=== PATIENT | male | born 1960 | race Caucasian/White ===

== ENCOUNTER 2020-06-01 08:22 | Outpatient (REF) | payer BC, SELFPAY ==
--- NOTE | 2020-06-01 08:25 | CT_ITS ---
EXAMINATION: CT CHEST SCREENING CLINICAL INFORMATION: CT lung screening. Ex-smoker. COMPARISON: 02/05/2019 TECHNIQUE: Multidetector volumetric CT imaging of the chest is performed without contrast using low dose technique. Additional 2D coronal and sagittal reformatted images and axial 3D maximum intensity projection (MIP) images are generated on the CT workstation. This CT examination was performed using dose optimization techniques as appropriate, variously including the following: *Automated exposure control *Adjustment of mA and/or kV according to patient size (this includes techniques or standardized protocols for targeted exams where dose is matched to indication/reason for exam; i.e. extremities or head) *Use of iterative reconstruction technique DLP: 52 mGy-cm FINDINGS: LUNGS: Central airways are patent. No bronchial wall thickening. No bronchiectasis. No confluent parenchymal disease. No significant changes of emphysema appreciated. There are a few sub-4 mm densities present bilaterally. These are stable compared to previous study. Within the right upper lobe adjacent to the minor fissure, there is a 4 mm density, likely representing an intrafissural lymph node. This is on image 290 of 554. This is a stable finding. There is a 5 mm circumscribed density seen within the lower portion peripherally of the right major fissure, likely representing an intrafissural lymph node. This is on image 448 of 554. This is slightly more prominent than on prior study but still consistent with a benign intrafissural lymph node. Within the left major fissure, there is a 6 x 3 mm noncalcified density, likely representing intrafissural lymph node. This is on image 299 of 554. This is a stable finding. MEDIASTINUM: Heart normal size. No evidence of thoracic aortic aneurysm. No pericardial effusion. No hilar or mediastinal lymphadenopathy. PLEURA: There is no pleural effusion. No pleural mass or thickening. AXILLA: No lymphadenopathy. UPPER ABDOMEN: There is a 1.0 cm cyst seen within segment 2 of the liver. No adrenal gland mass. OSSEOUS STRUCTURES: Unremarkable. CT/CT lung screening IMPRESSION: 1. Stable appearance compared to previous study with small pulmonary nodules and some intrafissural lymph nodes. 2. Hepatic cyst. ASSESSMENT: Lung-RADS category 2: Benign RECOMMENDATION: Routine annual low-dose CT screening in 12 months.
== END 2020-06-01 08:23 | disposition home or self-care (01) ==
LOC: HO.CT 08:22
PROVIDERS: PCP Internal Medicine; Visit Provider Surgery
DX: Z12.2 Encounter for screening for malignant neoplasm of respiratory organs (principal); Z87.891 Personal history of nicotine dependence
CPT/HCPCS: 71250

== ENCOUNTER 2020-07-20 10:53 | Outpatient (REF) | payer BC, SELFPAY ==
[2020-07-20 13:09] LABS: MANUAL DIFF FLAG NO
[2020-07-20 13:12] LABS: Basophils Percent Auto 0.4 % (0-2); Eosinophils Absolute Auto 0.1 X10*3/uL (0.0-0.4); Eosinophils Percent Auto 1.3 % (0-4); Hematocrit 45.3 % (42-52); Imm Gran Abs Auto 0.03 X10*3/uL (0.00-0.03); Imm Gran Pct Auto 0.4 % (0.0-0.4); Lymphocytes Absolute Auto 1.7 X10*3/uL (1.2-4.9); Lymphocytes Percent Auto 23.1 % (20-40); Mean Corpuscular HGB Conc 33.1 g/dl (31.0-36.0); Mean Corpuscular Hemoglobin 32.1 pg (27.0-33.0); Mean Corpuscular Volume 96.8 fL (80-98); Mean Platelet Volume 11.4 fL (9.4-12.4); Monocytes Absolute Auto 0.6 X10*3/uL (0.1-1.2); Monocytes Percent Auto 7.5 % (2-11); Neutrophils Percent Auto 67.3 % (45-73); Platelet Count 271 X10*3/uL (160-400); Red Blood Count 4.68 X10*6/uL (4.60-5.80); Red Cell Distribution Width 12.8 % (11.0-16.0); White Blood Count 7.5 X10*3/uL (4.8-10.8)
[2020-07-20 13:27] LABS: Glucose Urine UA NEG (NEG); Leukocyte Esterase Urine NEG (NEG); Nitrite Urine NEG (NEG); Specific Gravity - Urine >= 1.030 (1.005-1.025); Urine Blood NEG (NEG); Urine Ketones NEG (NEG); Urine Protein NEG (NEG-TRACE)
[2020-07-20 13:29] LABS: Appearance Urine CLEAR; Color Urine YELLOW
[2020-07-20 13:43] LABS: Alanine Aminotransferase 40 U/L (0-40); Alkaline Phosphatase 72 U/L (39-117); Anion Gap 17 (12-20); Aspartate Amino Transferase 29 U/L (5-37); Bilirubin Total 0.8 mg/dL (0.0-1.0); Blood Urea Nitrogen 12 mg/dL (9-16); Calcium 8.8 mg/dL (8.4-10.2); Carbon Dioxide 23 mmol/L (22-29); Chloride 108 mmol/L (96-108); Cholesterol 218 mg/dL; Estimated Glomerular Filt Rate > 60; Glucose Random 98 mg/dL (60-115); HDL Cholesterol 52 mg/dL; LDL Cholesterol Calculated 141 mg/dl; Potassium 4.5 mmol/l (3.3-5.1); Sodium 143 mmol/L (135-145); Total Protein 6.6 g/dL (6.5-8.0); Triglycerides 125 mg/dL
[2020-07-20 13:57] LABS: Prostate Specific Antigen Scr 0.52 ng/mL (<0.05-4.0)
== END 2020-07-20 10:54 | disposition home or self-care (01) ==
LOC: HO.10HDL 10:53
PROVIDERS: PCP Internal Medicine; Visit Provider Internal Medicine
DX: Z00.00 Encounter for general adult medical examination without abnormal findings (principal)
CPT/HCPCS: 36415; 80053; 80061; 81003; 84153; 85025

== ENCOUNTER 2020-08-04 10:59 | Outpatient (REF) | payer BC, SELFPAY ==
[2020-08-04 14:14] LABS: Cholesterol 200 mg/dL; HDL Cholesterol 56 mg/dL; LDL Cholesterol Calculated 132 mg/dl; Triglycerides 60 mg/dL
== END 2020-08-04 11:00 | disposition home or self-care (01) ==
LOC: HO.10HDL 10:59
PROVIDERS: Visit Provider Internal Medicine
DX: E78.00 Pure hypercholesterolemia, unspecified (principal)
CPT/HCPCS: 36415; 80061

== ENCOUNTER 2021-04-02 16:02 | Outpatient (REF) | payer BC, SELFPAY ==
[2021-04-02 16:45] LABS: Influenza A PCR NEGATIVE (Negative); Influenza B PCR NEGATIVE (Negative); Resp Syncy Virus RNA Qual PCR NEGATIVE (Negative); SARS COV2 PCR INHOUSE POSITIVE (Negative)
== END 2021-04-02 16:03 | disposition home or self-care (01) ==
LOC: HO.LNP 16:02
PROVIDERS: Visit Provider Internal Medicine
DX: R52 Pain, unspecified (principal); R07.0 Pain in throat; R50.9 Fever, unspecified; Z20.822 Contact with and (suspected) exposure to COVID-19
CPT/HCPCS: 0241U

== ENCOUNTER 2021-04-09 15:39 | Outpatient (REF) | payer BC, SELFPAY ==
--- NOTE | ~2021-04-09 | XR_ITS ---
EXAMINATION: XR CHEST CLINICAL INFORMATION: Covid infection. Cough and shortness of breath. Rule out pneumonia. COMPARISON: Previous chest x-ray most recent July [address] most recent May 2020 TECHNIQUE: 2 views of the chest were obtained. FINDINGS: No significant abnormality is noted involving the heart, lungs, mediastinum, bony thorax or soft tissues. XR/XR chest 2V IMPRESSION: Unremarkable examination.
== END 2021-04-09 15:40 | disposition home or self-care (01) ==
LOC: HO.XRAY 15:39
PROVIDERS: PCP Internal Medicine; Visit Provider Internal Medicine
DX: U07.1 COVID-19 (principal); R05 Cough; R06.02 Shortness of breath
CPT/HCPCS: 71046

== ENCOUNTER 2021-04-19 10:45 | Outpatient (REF) | payer BC, SELFPAY ==
[2021-04-19 13:01] LABS: Influenza A PCR NEGATIVE (Negative); Influenza B PCR NEGATIVE (Negative); Resp Syncy Virus RNA Qual PCR NEGATIVE (Negative); SARS COV2 PCR INHOUSE POSITIVE (Negative)
== END 2021-04-19 10:46 | disposition home or self-care (01) ==
LOC: HO.LNP 10:45
PROVIDERS: Visit Provider Internal Medicine
DX: Z20.822 Contact with and (suspected) exposure to COVID-19 (principal); Z86.16 Personal history of COVID-19
CPT/HCPCS: 0241U

== ENCOUNTER 2021-04-26 10:48 | Outpatient (REF) | payer BC, SELFPAY ==
[2021-04-26 12:09] LABS: Influenza A PCR NEGATIVE (Negative); Influenza B PCR NEGATIVE (Negative); Resp Syncy Virus RNA Qual PCR NEGATIVE (Negative); SARS COV2 PCR INHOUSE NEGATIVE (Negative)
== END 2021-04-26 10:49 | disposition home or self-care (01) ==
LOC: HO.LNP 10:48
PROVIDERS: Visit Provider Internal Medicine
DX: Z20.822 Contact with and (suspected) exposure to COVID-19 (principal); Z86.16 Personal history of COVID-19
CPT/HCPCS: 0241U

== ENCOUNTER 2023-06-26 09:49 | Outpatient (REF) | payer BC, SELFPAY ==
[2023-06-26 10:18] LABS: MANUAL DIFF FLAG NO
[2023-06-26 11:20] LABS: Basophils Absolute Auto 0.1 X10*3/uL (0.0-0.2); Basophils Percent Auto 0.8 % (0-2); Eosinophils Absolute Auto 0.1 X10*3/uL (0.0-0.4); Eosinophils Percent Auto 1.7 % (0-4); Hematocrit 43.3 % (42.0-52.0); Hemoglobin 14.4 g/dl (14.0-18.0); Imm Gran Abs Auto 0.04 X10*3/uL (0.00-0.03); Imm Gran Pct Auto 0.5 % (0.0-0.4); Lymphocytes Absolute Auto 2.4 X10*3/uL (1.2-4.9); Lymphocytes Percent Auto 32.2 % (20-40); Mean Corpuscular HGB Conc 33.3 g/dl (31.0-36.0); Mean Corpuscular Hemoglobin 31.6 pg (27.0-33.0); Mean Platelet Volume 10.8 fL (9.4-12.4); Monocytes Absolute Auto 0.8 X10*3/uL (0.1-1.2); Monocytes Percent Auto 9.9 % (2-11); Neutrophils Absolute Auto 4.2 x10*3/uL (2.0-8.3); Neutrophils Percent Auto 54.9 % (45-73); Platelet Count 271 X10*3/uL (160-400); Red Blood Count 4.56 X10*6/uL (4.60-5.80); Red Cell Distribution Width 12.6 % (11.0-16.0); White Blood Count 7.6 X10*3/uL (4.8-10.8)
[2023-06-26 11:52] LABS: Alanine Aminotransferase 24 U/L (0-40); Albumin Level 3.8 g/dL (3.5-5.0); Alkaline Phosphatase 64 U/L (39-117); Anion Gap 10 (12-20); Aspartate Amino Transferase 26 U/L (5-37); Bilirubin Total 1.3 mg/dL (0.0-1.0); Blood Urea Nitrogen 13 mg/dL (9-16); Calcium 8.8 mg/dL (8.4-10.2); Carbon Dioxide 27 mmol/L (22-29); Chloride 108 mmol/L (96-108); Cholesterol 199 mg/dL (<200); Estimated Glomerular Filt Rate > 60; Glucose Fasting 94 mg/dL (60-99); HDL Cholesterol 47 mg/dL (>40); LDL Cholesterol Calculated 127 mg/dL (<100); Potassium 4.4 mmol/L (3.3-5.1); Sodium 141 mmol/L (135-145); Total Protein 6.6 g/dL (6.5-8.0); Triglycerides 129 mg/dL (<150)
[2023-06-26 12:15] LABS: Prostate Specific Antigen Scr 0.48 ng/mL (<0.05-4.0)
[2023-06-30 21:33] LABS: Lyme Abs Screen <0.90 index
== END 2023-06-26 09:50 | disposition home or self-care (01) ==
LOC: HO.LAB 09:49
PROVIDERS: PCP Internal Medicine; Visit Provider Internal Medicine
DX: Z12.5 Encounter for screening for malignant neoplasm of prostate (principal); T14.8XXA Other injury of unspecified body region, initial encounter; W57.XXXA Bitten or stung by nonvenomous insect and other nonvenomous arthropods, initial encounter; E78.00 Pure hypercholesterolemia, unspecified; N40.0 Benign prostatic hyperplasia without lower urinary tract symptoms; M54.9 Dorsalgia, unspecified
CPT/HCPCS: 36415; 80053; 80061; 84153; 85025; 86617; 86618

== ENCOUNTER 2024-01-20 12:21 | Outpatient (REF) | payer BC, SELFPAY ==
--- NOTE | ~2024-01-20 | XR_ITS ---
EXAMINATION: XR CERVICAL SPINE CLINICAL INFORMATION: Neck pain COMPARISON: None available. TECHNIQUE: 3 views of the cervical spine were obtained. FINDINGS: Prevertebral soft tissues are normal. There is advanced degenerative change observed C4-C5 and C5-C6 with anterior posterior spurring but no fracture or destructive process. There is moderate encroachment on the right and left C5-C7 neural foramen on the basis of osteophytes and spurring. XR/XR cervical spine 4V IMPRESSION: Multilevel degenerative change. No fracture.
[2024-01-20 12:38] LABS: MANUAL DIFF FLAG NO
[2024-01-20 13:37] LABS: Basophils Absolute Auto 0.1 X10*3/uL (0.0-0.2); Basophils Percent Auto 0.7 % (0-2); Eosinophils Absolute Auto 0.1 X10*3/uL (0.0-0.4); Eosinophils Percent Auto 1.2 % (0-4); Hematocrit 45.4 % (42.0-52.0); Hemoglobin 15.6 g/dl (14.0-18.0); Imm Gran Abs Auto 0.04 X10*3/uL (0.00-0.03); Imm Gran Pct Auto 0.5 % (0.0-0.4); Lymphocytes Absolute Auto 2.3 X10*3/uL (1.2-4.9); Lymphocytes Percent Auto 31.3 % (20-40); Mean Corpuscular HGB Conc 34.4 g/dl (31.0-36.0); Mean Corpuscular Hemoglobin 32.5 pg (27.0-33.0); Mean Corpuscular Volume 94.6 fL (80.0-98.0); Mean Platelet Volume 11.5 fL (9.4-12.4); Monocytes Absolute Auto 0.7 X10*3/uL (0.1-1.2); Monocytes Percent Auto 8.8 % (2-11); Neutrophils Absolute Auto 4.2 x10*3/uL (2.0-8.3); Neutrophils Percent Auto 57.5 % (45-73); Platelet Count 263 X10*3/uL (160-400); Red Cell Distribution Width 13.2 % (11.0-16.0); White Blood Count 7.4 X10*3/uL (4.8-10.8)
[2024-01-20 14:05] LABS: Anion Gap 11 (12-20); Blood Urea Nitrogen 13 mg/dL (9-16); Calcium 9.9 mg/dL (8.4-10.2); Carbon Dioxide 27 mmol/L (22-29); Chloride 105 mmol/L (96-108); Estimated Glomerular Filt Rate > 60; Glucose Random 86 mg/dL (60-115); Magnesium 1.8 mg/dL (1.6-2.6); Potassium 4.3 mmol/L (3.3-5.1); Sodium 139 mmol/L (135-145)
== END 2024-01-20 12:22 | disposition home or self-care (01) ==
LOC: HO.XRAY 12:21
PROVIDERS: PCP Internal Medicine; Visit Provider Internal Medicine
DX: M54.2 Cervicalgia (principal)
CPT/HCPCS: 36415; 72050; 80048; 82550; 83735; 85025

== ENCOUNTER 2025-01-24 07:55 | Outpatient (AMB) | payer BC, SELFPAY ==
--- NOTE | 2025-01-24 07:58 | MHC.PC.OV ---
Vital Signs 01/24/25 08:02 Height 5 ft 10 in Weight 79.379 kg BMI 25.1 BP 112/70 Blood Pressure Location Lt brachial Position Sitting Pulse 61 Pulse Source Pulse Oximeter Temp 97.3 F Pulse Oximetry (%) 96 Oxygen Delivery Method Room Air Intake Visit Reasons: meds - see comments Mortgage Servicing Specialist Required: No Accompanied by: Self / Same As Patient Allergies No Known Allergies Allergy (Verified 01/24/25 07:59) HPI HPI Comments History of Present Illness Details 64-year-old male with history of BPH, hyperlipidemia, eczema, BPH who is a former smoker with greater than 30 pack-year history presents to the office today for management of chronic conditions and to establish care. BPH-stable. Not on medications Hyperlipidemia-not on statin Eczema-primarily on MCP joints bilaterally but has gotten breakouts on the abdomen as well. Previously following with Dermatology. On betamethasone Former smoker-greater than 30 pack-year history. Quit in 2017. Underwent lung cancer screening in 2019 showing stable small pulmonary nodules and some intra fissural lymph nodes with 12 month follow-up recommended though he did not return. Does report occasional dyspnea on exertion Concerns: None Health maintenance: Overdose for screening colonoscopy-refuses Overdue for lung cancer screening-refuses repeat Due for screening PSA ROS: General: No fevers, malaise, unintentional weight loss HEENT: No blurred vision, diplopia. No sore throat, nasal congestion, rhinorrhea, sinus pain, ear pain Cardiovascular: No chest pain, palpitations, or leg edema Respiratory: No wheezing, cough. see hpi GI: No abdominal pain, nausea, vomiting, diarrhea, constipation, melena, hematochezia : No dysuria, hematuria, increased urinary frequency, decreased urinary output MSK: No myalgia, back pain Neuro: No headaches, weakness, paresthesias Skin: No rashes or lesions EXAM: Constitutional - Awake and Alert, No apparent distress Eyes - PERRL Cardiovascular - S1S2, RRR, No edema Respiratory - Normal lung expansion, Normal respiratory effort, No respiratory distress, wheezing left lung, otherwise clear to auscultation Extremities - no calf tenderness bilaterally, no swelling Skin - Warm/Dry Neurological - Alert & oriented x3 Psychological - Appropriate affect [facility] Medical History (Updated 01/24/25 @ 08:17 by MARY Hunter) Former smoker Eczema BPH (benign prostatic hyperplasia) HLD (hyperlipidemia) Questionnaire PHQ-9 Over the last 2 weeks, how often have you been bothered by any of the following problems? 1. Little interest or pleasure in doing things: not at all 2. Feeling down, depressed, or hopeless: not at all 3. Trouble falling or staying asleep, or sleeping too much: not at all 4. Feeling tired or having little energy: not at all 5. Poor appetite or overeating: not at all 6. Feeling bad about yourself - or that you are a failure or have let yourself or your family down: not at all 7. Trouble concentrating on things, such as reading the newspaper or watching television: not at all 8. Moving or speaking so slowly that other people could have noticed. Or the opposite - being so fidgety or restless that you have been moving around a lot more than usual: not at all 9. Thoughts that you would be better off or of hurting yourself in some way: not at all Total score: 0 Source: Developed by Drs. Jay Baig, Keyonna Jett, Chalo Contreras and colleagues, with an educational luis from [email or web address]. Thrive Questionnaire Date Thrive assessed: 01/24/25 I am a: Patient What is your living situation today?: I have a steady place to live Within the past 12 months, did the food you bought not last and you didn't have the money to get more?: Never true Within the past 12 months, did you worry whether your food would run out before you got money to buy more?: Never true Do you have trouble paying for medicines?: No Do you have trouble getting transportation to medical appointments?: No Do you have trouble paying your heating and electricity bill?: No Do you have trouble taking care of your child, family member or friend?: No Do you have trouble with day-to-day activities such as bathing, preparing meals, shopping, managing finances, etc.?: No Are you currently unemployed and looking for a job?: No Are you interested in more education?: No THRIVE Score: 0 JESUS-7 AMB Questionnaire JESUS-7 Date JESUS - 7 assessed: 01/24/25 Feeling nervous, anxious, or on edge: 0 = Not at all Not being able to stop or control worryin = Not at all Worrying too much about different things: 0 = Not at all Trouble relaxin = Not at all Being so restless that it is hard to sit still: 0 = Not at all Becoming easily annoyed or irritable: 0 = Not at all Feeling afraid as if something awful might happen: 0 = Not at all Total JESUS-7 score (0-4 normal; 5-9 mild; 10-14 moderate; 15-21 severe): 0 Source: Developed by Drs. Jay Baig, Keyonna Jett, Chalo Contreras and colleagues, with an educational luis from [email or web address]. Physical exam (Primary Care) Vital Signs: Last Vital Signs Temp 97.3 F 01/24/25 08:02 Pulse 61 01/24/25 08:02 BP 112/70 01/24/25 08:02 Pulse Ox 96 01/24/25 08:02 Oxygen Delivery Method Room Air 01/24/25 08:02 BMI result Body Mass Index 25.1 Coding Level of Care Code New Pt Level 4 (11723) Complex EM visit Add On G2211 Diagnoses HLD (hyperlipidemia) E78.5 BPH (benign prostatic hyperplasia) N40.0 Eczema L30.9 Former smoker Z87.891 Assessment & Plan Assessment & Plan (1) HLD (hyperlipidemia): Code(s): E78.5 - Hyperlipidemia, unspecified Category: Medical Plan: Lipid panel order. Will calculate ASCVD risk score and recommend statin as indicated. Diet low in saturated fat and highly processed foods (2) BPH (benign prostatic hyperplasia): Code(s): N40.0 - Benign prostatic hyperplasia without lower urinary tract symptoms Category: Medical Plan: Stable. Monitor for symptoms (3) Eczema: Code(s): L30.9 - Dermatitis, unspecified Category: Medical Plan: No longer following with Dermatology. Betamethasone prescribed as needed (4) Former smoker: Code(s): Z87.891 - Personal history of nicotine dependence Category: Medical Plan: Quit 8 years ago with greater than 30 pack-year history. Declines further lung cancer screening. Likely also has component of COPD but declines any inhalers Declines AAA screening Plan Follow-up for annual physical exam. Labs to be completed following visit today. Declines all cancer screening separate PSA. Counseled on importance of screenings Orders: Orders Basic Metabolic Panel Today E78.5 - Hyperlipidemia, unspecified, L30.9 - Dermatitis, unspecified, N40.0 - Benign prostatic hyperplasia without lower urinary tract symptoms, Z12.5 - Encounter for screening for malignant neoplasm of prostate, Z13.1 - Encounter for screening for diabetes mellitus, Z13.220 - Encounter for screening for lipoid disorders Complete Blood Count Auto Diff Today Z12.5 - Encounter for screening for malignant neoplasm of prostate, Z13.1 - Encounter for screening for diabetes mellitus, Z13.220 - Encounter for screening for lipoid disorders Hemoglobin A1c Today Z12.5 - Encounter for screening for malignant neoplasm of prostate, Z13.1 - Encounter for screening for diabetes mellitus, Z13.220 - Encounter for screening for lipoid disorders Lipid Panel Today Z12.5 - Encounter for screening for malignant neoplasm of prostate, Z13.1 - Encounter for screening for diabetes mellitus, Z13.220 - Encounter for screening for lipoid disorders Liver Panel Today Z12.5 - Encounter for screening for malignant neoplasm of prostate, Z13.1 - Encounter for screening for diabetes mellitus, Z13.220 - Encounter for screening for lipoid disorders Prostate Specific Antigen Today Z12.5 - Encounter for screening for malignant neoplasm of prostate, Z13.1 - Encounter for screening for diabetes mellitus, Z13.220 - Encounter for screening for lipoid disorders Medications: New betamethasone dipropionate 0.05% 1 appl topical BID PRN 45 grams 0RF skin irritation
--- OUTSIDE RECORDS SUMMARY | 2025-01-24 07:58 | XMS_ITS | Patient Health Record ---
Author Organization [facility] Address [address] [place] [address] Care Team Providers Care Electric Motor Tester Name Role Phone Scott Blankenship MD Primary Care Provider Roman Hayes Unavailable [phone] Allergies Allergen (clinical drug ingredient) Drug/Non Drug Allergy documented on EMR Reaction Allergy Type Onset Date Status Penicillin skin discoloration Drug Allergy Active Reason For Referral No Information Social History Tobacco Use: Social History Observation Description Date Details (start date - stop date) Former Smoker NA - NA Tobacco Use/Smoking Question Answer Notes Are you a: former smoker When did you start smoking? 20+ years Additional Findings: Tobacco User Moderate cigar ette smoker (10-19 cigs/day) Alcohol Screen Question Answer Notes Did you have a drink containing alcohol in the p ast year? Yes Points 0 Interpretation Negative Tobacco use other than smoking: Question Answer Notes Are you an other tobacco user? No Plan Of Treatment No Information Insurance Providers Payer Name Payer Address Payer Phone Subscriber Number Group Number Insured Name Patient Relationship to Insured Coverage Start Date Coverage End Date [facility] [address] [place] [address] [phone] [id number] [place] Self - patient is the insured Medical (General) History Medical History History ICD Code Back,Hip,and Knee pain Broken bones
[2025-01-24 08:02] VITALS: BP 112/70; PULSE 61; TEMP 36.3; O2SAT 96; BMI 25.1
== END 2025-01-24 10:36 | disposition home or self-care (01) ==
LOC: HO.HMCHD 07:56
PROVIDERS: PCP Internal Medicine; Visit Provider Physician Assistant
DX: E78.5 Hyperlipidemia, unspecified (principal); N40.0 Benign prostatic hyperplasia without lower urinary tract symptoms; L30.9 Dermatitis, unspecified; Z87.891 Personal history of nicotine dependence

== ENCOUNTER 2025-04-11 03:11 | Emergency (ER) | payer BC, SELFPAY ==
--- NOTE | ~2025-04-11 | XR_ITS ---
CLINICAL HISTORY: painful swallowing 2 views soft tissue neck Comparison: None provided Findings No acute fractures or dislocation. Epiglottis unremarkable. Prevertebral soft tissues within normal limits. No foreign bodies. IMPRESSION: No acute findings This document has been electronically signed by: Tra Willis MD on 04/11/2025 05:36:32
[2025-04-11 03:21] VITALS: BP 142/74; PULSE 59; RESP 16; TEMP 36.2; O2SAT 97; BMI 25.2
--- OUTSIDE RECORDS SUMMARY | 2025-04-11 03:57 | XMS_ITS | Patient Health Record ---
Author Organization [facility] Address [address] [place] [address] Care Team Providers Care Minibus Driver Name Role Phone Scott Blankenship MD Primary Care Provider Roman Hayes Unavailable [phone] Allergies Allergen (clinical drug ingredient) Drug/Non Drug [...] Insured Coverage Start Date Coverage End Date [facility] [address] [place] [address] [id number] [place] Self - patient is the insured Medical (General) History Medical History History ICD Code Back,Hip,and Knee pain Broken bones
[2025-04-11 04:07] LABS: IDNOW Serial# 55D5AD1C; Strep A Nucleic Acid Negative (Negative)
[2025-04-11 04:14] LABS: Resp Syncy Virus RNA Qual PCR NEGATIVE (Negative); SARS COV2 PCR INHOUSE NEGATIVE (Negative)
[2025-04-11] MEDS: Lidocaine HCl Viscous 2 % 15 ML SOLUTION MUCOUS MEM (05:00)
--- NOTE | 2025-04-11 06:17 | ED.URI ---
HPI - URI/Sore Throat General Chief Complaint: Upper Respiratory Symptoms Stated Complaint: strep Time Seen by Provider: 04/11/25 04:06 Source: patient Mode of arrival: ambulatory Limitations: no limitations History of Present Illness ED Provider: Dr. Lela Bruce HPI Narrative: 64-year-old male with history of tobacco use presenting with sore throat ongoing for the last 5 days or so. Admits that his voice feels hoarse and muscled. His having difficulty swallowing due to pain. No associated fever. No known sick contacts or travel. Had been feeling well prior to this. He denies associated chest pain, difficulty breathing, cough, cold-type symptoms aside from a sore throat, nausea, vomiting, bowel changes or urinary complaints. Related Data Previous Rx's ?Medication ?Instructions ?Recorded betamethasone dipropionate 0.05 % 1 appl topical BID PRN skin 01/24/25 topical ointment irritation #45 grams amoxicillin 875 mg-potassium 1 tab PO BID 7 days #14 tabs 04/11/25 clavulanate 125 mg tablet dexamethasone 6 mg tablet 6 mg PO DAILY #5 tabs 04/11/25 Allergies Allergy/AdvReac Type Severity Reaction Status Date / Time No Known Allergies Allergy Verified 04/11/25 03:24 Review of Systems Review of Systems: as per HPI, full review of systems performed and negative but for the above mentioned pertinent positives and negatives. [facility] Past Medical History Medical History Former smoker Eczema BPH (benign prostatic hyperplasia) HLD (hyperlipidemia) Physical Exam Exam: Exam: GENERAL: Ill-Appearing, appears uncomfortable. SKIN: Normal skin color for ethnicity, warm, dry, no rashes noted. HEENT:? Normocephalic, atraumatic, no stridor, dry mucous membranes, dentition intact, EOMI, posterior oropharynx is erythematous, no exudates, uvula midline. NECK: Soft, supple, full ROM, midline structures nontender, no step-offs, no deformities, anterior cervical lymphadenopathy. CHEST: Heart regular rhythm, no murmurs, symmetric chest rise and fall. PULMONARY: Clear to auscultation bilaterally, diminished at the bases, no labored breathing, no wheezes/rhales/rhonchi. ABDOMINAL: Soft, nondistended, nontender, positive bowel sounds in all quadrants. : Deferred. MUSCULOSKELETAL: Normal tone, full range of motion, no deformities, no peripheral edema. NEURO: Alert and oriented x3, CN II through XII intact, equal strength and sensation bilateral upper and lower extremities, no focal neurologic deficits.? PSYCHIATRIC: Flat affect, fluid speech, good eye contact and appropriate demeanor. Vital Signs: Vital Signs: Last Vital Signs Temp 98.3 F 04/11/25 06:28 Pulse 63 04/11/25 06:28 Resp 18 04/11/25 06:28 BP 119/66 04/11/25 06:28 Pulse Ox 94 04/11/25 06:28 O2 Del Method Room Air 04/11/25 06:28 BMI result Body Mass Index 25.2 Medications Administered Discontinued Medications Generic Name Dose Route Start Last Admin Trade Name Freq PRN Reason Stop Dose Admin Ibuprofen 600 mg 04/11/25 04:34 04/11/25 05:00 Ibuprofen 600 Mg Tablet PO 04/11/25 04:35 600 mg ONCE ONE Administration Lidocaine HCl 15 ml 04/11/25 04:34 04/11/25 05:00 Lidocaine Hcl Viscous 2 % 15 Ml Solution MUCOUS MEM 04/11/25 04:35 15 ml ONCE ONE Administration Medical Decision Making Medical Decision Making [facility] Narrative: Patient presents today with a chief complaint of sore throat. Differential diagnosis includes pharyngitis as well as ENT emergencies such as epiglottitis, retropharyngeal abscess, peritonsillar abscess, Kal's angina, angioedema, allergic reaction, among many others. On exam, patient is nontoxic, tolerating their secretions, without signs of respiratory distress. XR does not show evidence of epiglottitis, RPA or narrowing of the trachea. Patient is tolerating PO and feeling improved after steriods. Using shared decision making, plan for discharge home to follow-up with primary care and/or specialist.? Patient understands and agrees with plan for discharge.? Discharged home in stable condition. Differential Diagnosis Differential Diagnoses: The differential diagnosis associated with the presentation includes (as above) Admission/Observation Consideration of admission/observation: Escalation of care including admission/observation considered Lab Data [facility] Lab Attestation statement: I reviewed the patient's lab results. Labs: Lab Results 04/11/25 Range/Units 03:30 Influenza Type A (PCR) NEGATIVE (Negative) Influenza Type B (PCR) NEGATIVE (Negative) RSV RNA Qual (PCR) NEGATIVE (Negative) SARS-CoV-2 RNA (RT-PCR) NEGATIVE (Negative) S. pyogenes GrpA JUAN ALBERTO Negative (Negative) Independent Interpretation I performed an independent interpretation of an: Plain X-Ray Radiology Impression Discussion of test interpretation with radiology: I have reviewed the radiologist's reading. Radiologist Impression: 2 views soft tissue neck Comparison: None provided Findings No acute fractures or dislocation. Epiglottis unremarkable. Prevertebral soft tissues within normal limits. No foreign bodies. IMPRESSION: No acute findings This document has been electronically signed by: Tra Willis MD on 04/11/2025 05:36:32 Prescription Management I considered prescription management with: Antibiotic and Other (steroids) Discharge Plan Discharge Clinical Impression: Acute viral pharyngitis, Former smoker Patient Disposition: Home, Self-Care Instructions: Pharyngitis (ED) Additional Instructions: Use the steroid help with the inflammation in your throat for the next 5 days. You may also use Chloraseptic spray, motrin or tylenol for throat pain. If your throat culture comes back positive, we will contact you to start antibiotics. A course was sent to your pharmacy and you may pick it up if your symptoms do not improve in the next couple of days. Return to the emergency department immediately with any new or worsening symptoms including: Worsening sore throat, fevers greater than 100?, inability to tolerate food or drink, any new symptom that concerns you. Call 911 with any medical emergency. Prescriptions: New dexamethasone 6 mg tablet 6 mg PO DAILY Qty: 5 0RF amoxicillin-pot clavulanate 875-125 mg tablet 1 tab PO BID 7 Days Qty: 14 0RF No Action betamethasone dipropionate 0.05 % ointment 1 appl topical BID PRN (Reason: skin irritation) Qty: 45 1RF Interventions: ED Discharge Assessment Last Done: 04/11/25 06:28 Discharge Date/Time: 04/11/25 06:29 Print Language: Italian
[2025-04-11 06:21] VITALS: BP 119/66; PULSE 63; RESP 18; TEMP 36.8; O2SAT 94
[2025-04-11 06:28] VITALS: BP 119/66; PULSE 63; RESP 18; TEMP 36.8; O2SAT 94
== END 2025-04-11 06:29 | disposition home or self-care (01) ==
PROVIDERS: Emergency Provider Emergency Medicine; PCP Physician Assistant
DX: J02.0 Streptococcal pharyngitis (principal); F17.210 Nicotine dependence, cigarettes, uncomplicated; Z03.818 Encounter for observation for suspected exposure to other biological agents ruled out
CPT/HCPCS: 70360; 87637; 87651; 99283; 99284

== ENCOUNTER → 2025-04-11 04:34 | Outpatient (BNV) | payer BC, SELFPAY | PROVIDERS: Emergency Provider Emergency Medicine; PCP Physician Assistant; Visit Provider Radiology Diagnostic Radiology | DX: R13.10 Dysphagia, unspecified (principal) | CPT/HCPCS: 70360 ==